=== PATIENT | male | born 1990 | race Caucasian/White ===

== ENCOUNTER 2017-01-29 15:07 | Emergency (ER) | payer SELFPAY ==
--- NOTE | 2017-01-29 16:03 | EDM.PDOC ---
ED HPI RENAL/ - General Chief Complaint: Genitourinary Problem Stated Complaint: Swollen scrotum Time Seen by Provider: 01/29/17 15:45 Source of Information: Reports: Patient, RN notes reviewed History Limitations: Reports: No limitations - History of Present Illness INITIAL COMMENTS - FREE TEXT/NARRATIVE: 26 year old male presents to the ED with scrotal bruising and swelling. The bruising started with the scrotum and has extended up the shaft of his penis. He first noticed the bruising yesterday morning after what he describes as " very rough sex." He says his scrotum is a little uncomfortable but denies pain. He denies difficulty with urination or pain with urination. He denies fever, chills, penile discharge. He had a full STI panel performed last week and said he was "clean." He has no concerns for STIs for this reason. - Related Data Allergies/ADRs: Allergies Allergy/AdvReac Type Severity Reaction Status Date / Time No Known Allergies Allergy Verified 01/29/17 15:34 Home Meds: Home Meds . [No Known Home Meds] 01/29/17 [History] Past Medical History - Past Health History Medical/Surgical History: Denies Medical/Surgical History Genitourinary History: Reports: Other (see below) Other Genitourinary History: infection in the scrotum September 2016 Psychiatric History: Reports: ADHD, Bipolar Social & Family History - Family History Family Medical History: Noncontributory - Tobacco Use Smoking Status *Q: Current Every Day Smoker Years of Tobacco use: 6 Packs/Tins Daily: 1 - Caffeine Use Caffeine Use: Reports: Coffee - Recreational Drug Use Recreational Drug Use: Yes Recreational Drug Type: Reports: Other (see below) Other Recreational Drug Type: currently on drug patch, started approximately 1 month ago ED ROS GENERAL - Review of Systems Review Of Systems: See Below Constitutional: Reports: no symptoms. Denies: fever, chills, diaphoresis GI/Abdominal: Reports: No symptoms. Denies: Abdominal pain, Nausea, Vomiting : Reports: other (scrotal bruising and swelling) Skin: Reports: bruising ED EXAM, RENAL/ - Physical Exam Exam: See Below Exam Limited By: No limitations General Appearance: alert, WD/WN, no apparent distress Respiratory/Chest: no respiratory distress, lungs clear, normal breath sounds Cardiovascular: regular rate, rhythm GI/Abdominal: normal bowel sounds, soft, non tender (Male) Exam: No hernia, Cremasteric reflex, Scrotal swelling, Other (dark, purple, diffuse bruising to the scrotum and shaft of penis with a moderate amount of bilateral swelling). No: Penile lesions, Rash, Scrotum tenderness (L) , Scrotum tenderness (R), Testicular tenderness (L), Testicular tenderness (R), Urethral discharge Course - Vital Signs Last Recorded V/S: Last Vital Signs Temp 97.7 F 01/29/17 15:28 Pulse 89 01/29/17 15:28 Resp 18 01/29/17 15:28 BP 115/79 01/29/17 15:28 Pulse Ox 99 01/29/17 15:28 - Re-Assessments/Exams Free Text/Narrative Re-Assessment/Exam: The patient's scrotum is non-tender. He has no s/s of infection. Imaging is not indicated. The bruising is likely a result of injury related to sexual activity. He was educated to elevate his scrotum as much as possible and apply cool moist compresses. He was thoroughly educated on return precautions. Departure - Departure Time of Disposition: 16:01 Disposition: Home, Self-Care 01 Condition: good Clinical Impression: Bruise of scrotum Qualifiers: Encounter type: initial encounter Qualified Code(s): S30.22XA - Contusion of scrotum and testes, initial encounter Instructions: Contusion, [id number] Referrals: PCP,None [Primary Care Provider] - Forms: ED Department Discharge Additional Instructions: Elevate scrotum as much as possible Cool moist compresses as tolerated Ibuprofen 800mg every 8 hours as needed for pain Tylenol 650mg every 4-6 hours as needed for pain not relieved by Ibuprofen If swelling or bruising continues to worsen over the next 24 hours you need to have this rechecked Return to ER if you develop fever, inability to void (pee), increasing pain, or increasing swelling
[2017-01-29 17:10] VITALS: BP 110/72
== END 2017-01-29 17:05 | disposition home or self-care (01) ==
LOC: JD.ED 15:07
DX: S30.22XA Contusion of scrotum and testes, initial encounter (principal); X58.XXXA Exposure to other specified factors, initial encounter; F17.210 Nicotine dependence, cigarettes, uncomplicated; F31.9 Bipolar disorder, unspecified
CPT/HCPCS: 99282; 99284